=== PATIENT | male | born 1970 | race Caucasian/White ===

== ENCOUNTER 2024-02-08 12:53 | Emergency (ER) | payer OTHER ==
[~2024-02-08] VITALS: Ht 167.6 cm; Wt 90.7 kg
[2024-02-08 13:04] VITALS: BP_SYST 163; PULSE 98; RESP 20; TEMP 98.3; O2SAT 98
[2024-02-08 14:31] LABS: BASOPHILS # (AUTO) 0.1 K/uL (0.0-0.2); BASOPHILS % (AUTO) 0.7 % (0.0-2.0); EOSINOPHILS # (AUTO) 0.1 K/uL (0.0-0.4); EOSINOPHILS % (AUTO) 0.7 % (0.0-4.0); HEMOGLOBIN 14.2 g/dL (14.0-18.0); LYMPHOCYTES # (AUTO) 1.9 K/uL (1.0-5.5); LYMPHOCYTES % (AUTO) 16.6 % (20.5-51.5); MEAN CORPUSCULAR HEMOGLOBIN 29 pg (27-31); MEAN CORPUSCULAR HGB CONC 34 % (32-36); MEAN CORPUSCULAR VOLUME 84 fL (79.0-98.0); MONOCYTES # (AUTO) 1.2 K/uL (0.0-1.0); MONOCYTES % (AUTO) 10.2 % (1.7-9.3); NEUTROPHILS # (AUTO) 8.3 K/uL (1.8-7.7); NEUTROPHILS % (AUTO) 71.8 % (40.0-70.0); PLATELET COUNT (AUTO) 347 K/uL (130-430); RED BLOOD CELL COUNT(AUTO) 4.97 MIL/uL (4.2-6.2); RED CELL DISTRIBUTION WIDTH 15.3 % (9.0-15.0); WHITE BLOOD COUNT (AUTO) 11.6 K/uL (4.8-10.8)
[2024-02-08 14:52] LABS: ALANINE AMINOTRANSFERASE 28 U/L (12-78); ALBUMIN 3.9 g/dL (3.4-4.8); ANION GAP 10 (5-15); ASPARTATE AMINOTRANSFERASE 36 U/L (10-37); BILIRUBIN,DIRECT 0.5 mg/dL (0.0-0.3); CALCIUM 9.1 mg/dL (8.4-11.0); CARBON DIOXIDE 27 mmol/L (23-29); CHLORIDE 105 mmol/L (98-107); CREATININE 1.08 mg/dL (0.55-1.30); GFR AFRICAN AMERICAN 93 mL/min (>90); GLUCOSE 112 mg/dL (74-106); POTASSIUM 3.4 mmol/L (3.5-5.1); SODIUM SERUM 142 mmol/L (136-145); TOTAL BILIRUBIN 2.9 mg/dL (0.0-1.0); UREA NITROGEN, BLOOD 34 mg/dL (8-21)
[2024-02-08 14:53] LABS: GFR NON AFRICAN-AMERICAN 77 mL/min (>90)
[2024-02-08 15:15] LABS: BILIRUBIN,URINE NEGATIVE (NEGATIVE); CLARITY/URINE CLEAR (CLEAR); COLOR,URINE YELLOW (YELLOW); GLUCOSE,URINE NEGATIVE (NEGATIVE); KETONES,URINE 1+ (NEGATIVE); LEUKOCYTE ESTERASE ,URINE NEGATIVE (NEGATIVE); NITRITE, URINE NEGATIVE (NEGATIVE); PROTEIN URINE TRACE (NEGATIVE); UROBILINOGEN,URINE 0.2 (0.2-1.0)
[2024-02-08 15:25] LABS: BLOOD, URINE TRACE (NEGATIVE)
[2024-02-08 15:37] LABS: BARBITURATE, URINE NEGATIVE (NEG <=200); METHAMPHETAMINES SCREEN,URINE POSITIVE (NEG <=500); URINE AMPHETAMINE POSITIVE (NEG <=500)
[2024-02-08 15:38] LABS: BENZODIAZEPINE, URINE NEGATIVE (NEG <=150); CANNABINOID, URINE POSITIVE (NEG <=50); COCAINE, URINE NEGATIVE (NEG <=150); OPIATE, URINE NEGATIVE (NEG <=100); PHENCYCLIDINE SCREEN,URINE NEGATIVE (NEG <=25); URINE METHADONE NEGATIVE (NEG <=200); URINE OXYCODONE SCREEN NEGATIVE (NEG <=100)
[2024-02-08 15:39] LABS: UR TRICYCLIC ANTIDEPRESSANTS NEGATIVE (NEG <=300)
[2024-02-08 16:07] LABS: BACTERIA,URINE None Seen /HPF (None Seen)
== END 2024-02-08 16:50 | disposition left against medical advice (07) ==
LOC: EDBD 12:53 → SED 12:53
DX: M25.561 Pain in right knee (principal); G89.29 Other chronic pain; F15.10 Other stimulant abuse, uncomplicated; Z79.899 Other long term (current) drug therapy
CPT/HCPCS: 36415; 71045; 73564; 80048; 80076; 80307; 81000; 81001; 81015; 84484; 85025; 99284; 99285

== ENCOUNTER 2024-02-08 18:11 | Emergency (ER) | payer OTHER ==
[~2024-02-08] VITALS: Ht 165.1 cm; Wt 86.2 kg
[2024-02-08 19:07] VITALS: BP_SYST 163; PULSE 75; RESP 20; TEMP 98.3; O2SAT 98
[2024-02-08] MEDS: LORazepam 2 MG/ML VIAL IM ONE (23:54)
[2024-02-08] MEDS: HALOPERIDOL LACTATE 5 MG/ML VIAL IM ONE (23:55)
[2024-02-08] MEDS: DIPHENHYDRAMINE INJ 50 MG/ML VIAL IM ONE (23:55)
[2024-02-09] MEDS: DIPHENHYDRAMINE INJ 50 MG/ML VIAL IM ONE (23:06)
[2024-02-09] MEDS: LORazepam 2 MG/ML VIAL IM ONE (23:06)
[2024-02-09] MEDS: HALOPERIDOL LACTATE 5 MG/ML VIAL IM ONE (23:06)
[2024-02-10 08:20] VITALS: BP_SYST 106; PULSE 66; RESP 18; TEMP 98.6; O2SAT 99
== END 2024-02-09 08:25 | disposition home or self-care (01) ==
LOC: SED 18:11
DX: R41.82 Altered mental status, unspecified (principal); F98.9 Unspecified behavioral and emotional disorders with onset usually occurring in childhood and adolescence; F15.129 Other stimulant abuse with intoxication, unspecified; F12.90 Cannabis use, unspecified, uncomplicated; Z20.822 Contact with and (suspected) exposure to COVID-19
CPT/HCPCS: 99285; 87426; 36415; 96372; 73502; J1200 ×2; J1630 ×2; J2060 ×2